=== PATIENT | female | born 1955 | race Caucasian/White ===

== ENCOUNTER → 2021-03-22 | Outpatient (CLI) | payer MEDICARE, BC ==
[~2021-03-22] MED LIST: ALBUTEROL2.5 MG/3 M INH; AMIODARONE HCL200 MG PO; ARMOUR THYROID15 MG PO; ARMOUR THYROID60 MG PO; ASPIR 8181 MG PO; B COMPLEX PO; CALCIUM500 MG PO; CALCIUM600 MG PO; CLARITIN 10MG T10 MG PO; COLACE 100MG C100 MG PO; CORDARONE 200M200 MG PO; CYANOCOBALAMIN PO; DOXYCYCLINE HY100 M2 PO; FLUOXETINE HCL10 M1 PO; IMVEXXY10 MCG VG; LEVOFLOXACIN500 MG PO; LIPITOR TAB 2020 MG PO; LOPRESSOR 25 MG25 MG PO; LORTAB 5-325 M1 EACH PO; LORTAB 7.5-3251 EACH PO; MILK OF MAGNESI30 ML PO; MULTAQ400 MG PO; MULTI-DAY VITA1 EACH PO; OMEGA-31000 MG PO; OS-CAL 500+D31 EACH PO; PROAIR HFA8.5 GM INH; PROBIOTIC1 EAC1 PO; PROZAC10 MG PO; SUPER B-50 COM1 EACH PO; THERAGRAN M TAB1 EA PO; VAGIFEM PR; VITA-BEE WITH1 EACH PO; VITAMIN D3 PO; VITAMIN D32000 UNI1 PO; VITAMIN D35000 UNI1 PO; WOMEN'S 50 PLU1 EACH PO; ZANTAC150 MG PO
== END ==
LOC: KOH-I 15:06
DX: Z87.891 Personal history of nicotine dependence (principal)
CPT/HCPCS: 71271

== ENCOUNTER → 2022-02-22 | Outpatient (CLI) | payer MEDICARE, BC | LOC: KOH-I 10:20 | DX: R10.32 Left lower quadrant pain (principal); K57.30 Diverticulosis of large intestine without perforation or abscess without bleeding; K59.00 Constipation, unspecified; M51.36 Other intervertebral disc degeneration, lumbar region | CPT/HCPCS: 74176 ==

== ENCOUNTER → 2022-04-03 | Outpatient (CLI) | payer MEDICARE, BC | LOC: KOH-I 11:20 | DX: Z87.891 Personal history of nicotine dependence (principal) | CPT/HCPCS: 71271 ==